=== PATIENT | male | born 1945 | race Caucasian/White ===

== ENCOUNTER 2022-09-21 06:16 | Day surgery (SDC) | payer MEDICARE ==
[2022-09-21] MEDS ORDERED: Lactated Ringers 1,000 ML IV SCH (07:00)
[2022-09-21] MEDS ORDERED: fentaNYL 100 MCG/2 ML SDV ONE (07:07)
[2022-09-21] MEDS ORDERED: Propofol 200 MG/20 ML SDV ONE (07:07)
== END 2022-09-21 09:05 | disposition home or self-care (01) ==
LOC: JP.SDS 06:16
PROVIDERS: ATTEND Student in an Organized Health Care Education/Training Program
DX: Z12.11 Encounter for screening for malignant neoplasm of colon (principal); K37 Unspecified appendicitis; K57.30 Diverticulosis of large intestine without perforation or abscess without bleeding; I10 Essential (primary) hypertension; E78.5 Hyperlipidemia, unspecified; I48.91 Unspecified atrial fibrillation; E11.9 Type 2 diabetes mellitus without complications; Z79.899 Other long term (current) drug therapy; Z95.0 Presence of cardiac pacemaker
CPT/HCPCS: 45380; 88305; 93005; J2704; J3010; J7120